=== PATIENT | female | born 1960 | race Caucasian/White ===

== ENCOUNTER → 2020-07-14 08:00 | Outpatient (BNV) | payer BC, OTHER, SELFPAY | PROVIDERS: Visit Provider Internal Medicine Medical Oncology | DX: Z85.3 Personal history of malignant neoplasm of breast (principal); Z92.21 Personal history of antineoplastic chemotherapy | CPT/HCPCS: 99213; 99214 ==

== ENCOUNTER 2021-04-06 15:12 | Outpatient (REF) | payer OTHER, SELFPAY | END 2021-04-06 15:13 | disposition home or self-care (01) | LOC: HO.LAB 15:12 | PROVIDERS: PCP Internal Medicine; Visit Provider Internal Medicine | DX: Z20.822 Contact with and (suspected) exposure to COVID-19 (principal) | CPT/HCPCS: C9803; U0003; U0005 ==

== ENCOUNTER 2021-07-07 08:33 | Outpatient (REF) | payer OTHER, SELFPAY ==
[2021-07-07 13:50] LABS: CT PCR NOT DETECTED (Not Detect.); NG PCR NOT DETECTED (Not Detect.)
[2021-07-08 08:47] LABS: BV Int Neg Control Negative (Negative); BV Int Pos Control Positive (Positive)
[2021-07-10 01:21] LABS: HPV mRNA E6/E7 rflx Not Detected (Not Detected)
== END 2021-07-07 08:34 | disposition home or self-care (01) ==
LOC: HO.LAB 08:33
PROVIDERS: PCP Internal Medicine; Visit Provider Advanced Practice Midwife
DX: Z01.419 Encounter for gynecological examination (general) (routine) without abnormal findings (principal); Z20.2 Contact with and (suspected) exposure to infections with a predominantly sexual mode of transmission; Z79.899 Other long term (current) drug therapy
CPT/HCPCS: 87480; 87491; 87510; 87591; 87624; 87660; 88142

== ENCOUNTER → 2021-11-04 13:44 | Outpatient (BNVA) | payer BC, SELFPAY | PROVIDERS: PCP Internal Medicine Medical Oncology; Referring Provider Internal Medicine Medical Oncology; Visit Provider Surgery | DX: Z13.89 Encounter for screening for other disorder (principal) ==

== ENCOUNTER 2022-01-21 12:36 | Outpatient (REF) | payer BC, SELFPAY | END 2022-01-21 12:37 | disposition home or self-care (01) | LOC: HO.XRAY 12:36 | PROVIDERS: PCP Internal Medicine; Visit Provider Internal Medicine | DX: Z13.89 Encounter for screening for other disorder (principal) ==

== ENCOUNTER 2022-01-24 16:45 | Outpatient (REF) | payer BC, SELFPAY ==
--- NOTE | ~2022-01-24 | XR_ITS ---
EXAMINATION: XR CERVICAL SPINE CLINICAL INFORMATION: Neck pain COMPARISON: None TECHNIQUE: 3 views of the cervical spine were obtained. FINDINGS: Bone alignment is normal. No fracture or dislocation is seen. There is degenerative spondylosis and degenerative disc disease from C3-C4 to C6-C7 with large bridging anterior vertebral body bony osteophytes. Prevertebral soft tissues are normal. XR/XR cervical spine 2V IMPRESSION: Multilevel degenerative changes.
--- NOTE | ~2022-01-24 | XR_ITS ---
EXAMINATION: XR CHEST CLINICAL INFORMATION: Neck pain COMPARISON: Previous chest x-ray April 2020 TECHNIQUE: 2 views of the chest were obtained. FINDINGS: No significant abnormality is noted involving the heart, lungs, mediastinum, or soft tissues. There are mild degenerative changes of the thoracic spine. XR/XR chest 2V IMPRESSION: No evidence for acute disease in the chest.
== END 2022-01-24 16:46 | disposition home or self-care (01) ==
LOC: HO.XRAY 16:45
PROVIDERS: PCP Internal Medicine; Visit Provider Internal Medicine
DX: M54.2 Cervicalgia (principal)
CPT/HCPCS: 71046; 72040

== ENCOUNTER 2022-08-10 14:25 | Outpatient (REF) | payer BC, SELFPAY ==
--- NOTE | ~2022-08-10 | MM_ITS ---
EXAMINATION: BONE DENSITOMETRY CLINICAL INDICATION: Osteopenia. COMPARISON: Previous BD dated 12/17/2019 and baseline BD dated 07/11/2008. TECHNIQUE: Using a [employer] DXA System (software version: 13.1) manufactured by [employer], dual-energy x-ray absorptiometry was performed of the lumbar spine and left hip. The images are of good technical quality. Summary results are attached. FINDINGS: AP SPINE L1-L4: Current: BMD 1.132 g/cm2, Z-score 1.1, T-score 0.4, normal, 0.4% decrease from previous, 5.7% decrease from baseline (<5% change is not significant). Prior: BMD 1.137 g/cm2. Baseline: BMD 1.201 g/cm2. LEFT FEMUR, NECK: Current: BMD 0.940 g/cm2, Z-score 0.7, T-score -0.7, normal. Prior: BMD 0.984 g/cm2. Baseline: BMD 0.984 g/cm2. LEFT FEMUR, TOTAL: Current: BMD 1.049 g/cm2, Z-score 1.4, T-score 0.3, normal, 0.7% decrease from previous, 5.4% decrease from baseline (<5% change is not significant). Prior: BMD 1.056 g/cm2. Baseline: BMD 1.109 g/cm2. IDENTIFIED RISK FACTORS: Bilateral oophorectomy, early menopause, secondary osteoporosis. HISTORY OF FRACTURE: None listed. MEDICATIONS: Multivitamin. MM/XR DEXA axial skeleton IMPRESSION: 1. DIAGNOSIS: Normal bone density based on the lowest T-score value of -0.7 in the femoral neck applying World Health Organization criteria. 2. 10-YEAR FRACTURE RISK PREDICTION, FRAX: According to the guidelines, FRAX calculation should only be performed on patients in the osteopenia bone density category. Therefore, FRAX was not performed on this patient. 3. Treatment Recommendations: NOF guidelines recommend consideration for treatment in postmenopausal women and men age 50 and older presenting with the following: -A hip or vertebral (clinical or morphometric) fracture. -T-score less than or equal to -2.5 at the femoral neck or spine after appropriate evaluation to exclude secondary causes. -Low bone mass at the hip or spine and a 10-year fracture probability by FRAX of greater than or equal to 3% for hip fracture or greater than or equal to 20% for major osteoporotic fracture based on the [place] adapted WHO algorithm. 4. Other Recommendations: All treatment decisions require clinical judgment and consideration of individual patient factors, including patient preferences, comorbidities, previous drug use, risk factors not captured in the FRAX model (e.g. frailty, falls, vitamin D deficiency, increased bone turnover, interval significant decline in bone density) and possible under or overestimation of fracture risk by FRAX. FUTURE SCAN RECOMMENDATION: People with diagnosed cases of osteoporosis or at high risk for fracture should have regular bone mineral density tests. For patients eligible for Medicare, routine testing is allowed once every 2 years. The testing frequency can be increased to one year for patients who have rapidly progressing disease, those who are receiving or discontinuing medical therapy to restore bone mass, or have additional risk factors.
== END 2022-08-10 14:26 | disposition home or self-care (01) ==
LOC: HO.MAMMO 14:25
PROVIDERS: PCP Internal Medicine; Visit Provider Internal Medicine Medical Oncology
DX: Z13.820 Encounter for screening for osteoporosis (principal); Z78.0 Asymptomatic menopausal state; M85.80 Other specified disorders of bone density and structure, unspecified site
CPT/HCPCS: 77080

== ENCOUNTER 2022-08-22 11:53 | Outpatient (REF) | payer BC, SELFPAY ==
[2022-08-22 13:14] LABS: Anion Gap 15 (12-20); Blood Urea Nitrogen 11 mg/dL (9-16); Calcium 9.6 mg/dL (8.4-10.2); Carbon Dioxide 27 mmol/L (22-29); Chloride 104 mmol/L (96-108); Cholesterol 207 mg/dL; Estimated Glomerular Filt Rate > 60; Glucose Random 100 mg/dL (60-115); HDL Cholesterol 65 mg/dL; LDL Cholesterol Calculated 115 mg/dl; Potassium 4.9 mmol/L (3.3-5.1); Sodium 141 mmol/L (135-145); Triglycerides 137 mg/dL
[2022-08-22 13:44] LABS: Folate 13.7 ng/mL (> or = 4.0); Free T4 (Free Thyroxine) 0.87 ng/dL (0.71-1.85); Thyroid Stimulating Hormone 1.53 uIU/mL (0.32-4.0); Vitamin B12 493 pg/mL (200-900); Vitamin D 25-OH Total 25.2 ng/mL (>30)
== END 2022-08-22 11:54 | disposition home or self-care (01) ==
LOC: HO.LAB 11:53
PROVIDERS: PCP Internal Medicine; Visit Provider Nurse Practitioner Family
DX: I10 Essential (primary) hypertension (principal); E78.00 Pure hypercholesterolemia, unspecified; E55.9 Vitamin D deficiency, unspecified
CPT/HCPCS: 36415; 80048; 80061; 82306; 82607; 82746; 84439; 84443

== ENCOUNTER → 2022-09-26 09:32 | Outpatient (BNVA) | payer BC, SELFPAY | PROVIDERS: PCP Internal Medicine; Visit Provider Advanced Practice Midwife | DX: Z13.89 Encounter for screening for other disorder (principal) ==

== ENCOUNTER 2022-09-30 08:11 | Day surgery (SDC) | payer BC, SELFPAY ==
[2022-09-27 10:03] VITALS: BMI 24.9
--- NOTE | 2022-09-29 09:43 | HO.ANESPROP2 ---
Documented by User: Susu Russell NP 09/29/22 09:44 HPI - Anesthesia Eval Consult details Narrative: 62yo F for Colonoscopy PMFSH Active Problems Active Problems: All Active Problems (Updated 09/27/22 @ 10:01 by Neha Barrett RN) Neck pain on left side (Acute) Annual physical exam (Acute) Generalized anxiety disorder (Acute) Scalp lesion (Acute) Low back pain (Acute) Low back strain (Acute) Low vitamin D level (Acute) Swelling of inguinal region (Acute) Cervical cancer screening (Acute) Well woman exam with routine gynecological exam (Acute) History of breast cancer (Acute) Insomnia (Acute) Hypertension (Acute) Past Medical History Medical History (Updated 09/27/22 @ 10:01 by Neha Barrett RN) Arthritis Breast cancer Cervical cancer screening Encounter for screening colonoscopy History of breast cancer Hypertension Infiltrating ductal carcinoma of left breast Insomnia Neuropathy Pancreatitis Renal calculi Vitamin D deficiency Well woman exam with routine gynecological exam Family History Family History Father CVD (cardiovascular disease) Myocardial infarction Mother Esophageal cancer Maternal Aunt Breast cancer Paternal Aunt Breast cancer Surgical History Surgical History History of bilateral oophorectomy History of section History of cholecystectomy History of colonoscopy History of tonsillectomy Social History Social History Household Members: Spouse Household Members Other:: , 3 kids Housing: House Are you a primary dog day care attendant to a significant other at home: No Do you presently have visiting nurse or other home services: No Alcohol intake: current Alcohol intake frequency: 0-2 drinks per day Patient Tobacco Use Status: Never used Tobacco e-Cigarette/Vaping Use: Never Used Second Hand Smoke Exposure: No Use of substances other than those prescribed or required for medical reasons: No Have you been hit, kicked, punched, or otherwise hurt by someone within the past year? If so, by whom?: No Are you DNR?: No Advance Directives: No Advance Directives Information Provided: Yes Advance Directives on File: No Recently lost weight without trying: No Eating poorly because of decreased appetite: No Nutrition Risks: No Nutritional Risk Patient : No : No Poor oral hygiene: Yes (1 crown with post loose) service: No Current occupational status: employed Cognitive needs: No Hearing needs: No Vision needs: Yes Meds Allergies Allergy/AdvReac Type Severity Reaction Status Date / Time diphenhydramine Allergy Unknown Jittery Verified 09/26/22 09:40 [[facility] Home Medications Medication Instructions Recorded Confirmed Last Taken Type melatonin 5 mg capsule 5 mg PO BEDTIME 08/24/20 09/27/22 Unknown History multivitamin 1 tab PO DAILY 08/24/20 09/27/22 Unknown History Exam Exam Date and Time: September 29, 2022 0943 Height,Weight and Vital Signs: Height 5 ft 1 in Weight 59.874 kg Pertinent Lab Results Pertinent Lab Results: Laboratory Tests 04/14/22 08/22/22 08:09 12:01 WBC 8.3 Hgb 13.6 Hct 39.4 Plt Count 343 D Sodium 141 Potassium 4.9 Chloride 104 Carbon Dioxide 27 BUN 11 Creatinine 0.73 Assessment and Plan Assessment Anesthesia Assessment: Chart Reviewed Documented by User: Cayla iVllalobos MD 09/30/22 09:12 [facility] Past Medical History Medical History (Updated 09/27/22 @ 10:01 by Neha Barrett RN) Arthritis Breast cancer Cervical cancer screening Encounter for screening colonoscopy History of breast cancer Hypertension Infiltrating ductal carcinoma of left breast Insomnia Neuropathy Pancreatitis Renal calculi Vitamin D deficiency Well woman exam with routine gynecological exam Family History Family History Father CVD (cardiovascular disease) Myocardial infarction Mother Esophageal cancer Maternal Aunt Breast cancer Paternal Aunt Breast cancer Family history of problems with anesthesia: No Surgical History Surgical History History of bilateral oophorectomy History of section History of cholecystectomy History of colonoscopy History of tonsillectomy History of Problems with Anesthesia: No Social History Social History Household Members: Spouse Household Members Other:: , 3 kids Housing: House Are you a primary dog day care attendant to a significant other at home: No Do you presently have visiting nurse or other home services: No Alcohol intake: current Alcohol intake frequency: 0-2 drinks per day Patient Tobacco Use Status: Never used Tobacco e-Cigarette/Vaping Use: Never Used Second Hand Smoke Exposure: No Use of substances other than those prescribed or required for medical reasons: No Have you been hit, kicked, punched, or otherwise hurt by someone within the past year? If so, by whom?: No Are you DNR?: No Advance Directives: No Advance Directives Information Provided: Yes Advance Directives on File: No Recently lost weight without trying: No Eating poorly because of decreased appetite: No Nutrition Risks: No Nutritional Risk Patient : No : No Poor oral hygiene: Yes (1 crown with post loose) service: No Current occupational status: employed Cognitive needs: No Hearing needs: No Vision needs: Yes Meds Allergies Allergy/AdvReac Type Severity Reaction Status Date / Time diphenhydramine Allergy Unknown Jittery Verified 09/26/22 09:40 [From Benadryl] Home Medications Medication Instructions Recorded Confirmed Last Taken Type melatonin 5 mg capsule 5 mg PO BEDTIME 08/24/20 09/27/22 Unknown History multivitamin 1 tab PO DAILY 08/24/20 09/27/22 Unknown History Exam Airway Mallampati Class: II (top lose cap) TM Dist: >3cm Neck ROM: Full Heart: rrr Lungs: cta Assessment and Plan Assessment Anesthesia Assessment: Anesthesia Plan Discussed Final Anesthetic Review Family History of Problems with Anesthesia: No History of Problems with Anesthesia: No NPO: Yes ASA Class: II Final Preanesthetic Review: No Changes in Pt Med Stat, Meds/Allgs Chart Reviewed and Consent Obtained/Reviewed Patient Risk: Intermediate Procedure Risk: Intermediate Anesthetic Plan Anesthetic Plan: MAC: Disposition: Standard PACU
[2022-09-30 08:50] VITALS: BP 147/85; PULSE 79; RESP 18; TEMP 36.6; O2SAT 97; BMI 24.9
--- NOTE | 2022-09-30 09:07 | MHC.SHP ---
Pre-Procedural Eval Section A Date of Service: 09/30/22 The patient is an INPATIENT: No The History & Physical has been completed within 30 days and I have reviewed it.: No Section B Chief Complaint: screening Details of Present Illness: Colon cancer screening Relevant Family History (Specify if Yes): Yes Relevant Social History: None Present Medications: see Short Stay Collaborative assessment Medical History: Significant History (Hypertension Infiltrating ductal carcinoma of left breast Insomnia Renal calculi) History of Previous Operations: Relevant previous surgery/procedure and date(s) (History of bilateral oophorectomy History of section History of cholecystectomy History of colonoscopy History of tonsillectomy) Allergies: Allergies Allergy/AdvReac Type Severity Reaction Status Date / Time diphenhydramine Allergy Unknown Harjitttnicole Verified 09/26/22 09:40 [From Benadryl] Review of Systems Sugical H&P ROS: Negative: Constitution, Cardiovascular, Respiratory and Gastrointestinal Exam Surgical H&P Exam: Normal: Heart, Normal: Lungs, Normal: Extremities and Normal: Abdomen Plan Diagnosis/Plan: Unchanged I have reviewed the history and physical and performed a pertinent physical examination on my patient. No changes have occurred unless specified. Time Spent With Patient Time: Total time managing care of this patient today ____ minutes.
[2022-09-30] MEDS: Lactated Ringers 1,000 ML 100 ML IVCONT (09:11)
--- NOTE | 2022-09-30 09:16 | W.PM.OPN ---
Operative Note Operative Note Date of Service: 09/30/22 Narrative: COLONOSCOPY TILL CECUM WITH SNARE POLYPECTOMY Pre-op diagnosis: Colon cancer screening Post-op diagnosis:? Colon polyps, diverticulosis Endoscopist:? Rosa Jett MD Anesthesia:?MAC Consent: Indications for the procedure and potential complications of bleeding, perforation, reaction to medications and missed diagnosis were discussed with the patient and informed consent was obtained. Instrument: Olympus PCF H 190 L variable stiffness pediatric colonoscope Monitoring: Vital signs and clinical assessment, intermittent blood pressure monitoring, continuous EKG monitoring, Pulse oximetry and Carbon Dioxide monitoring were done throughout the procedure. Please see anesthesia flowsheet. Colon withdrawl time was 22 minutes. Procedure: The patient was placed in the left lateral decubitis position and pre-procedure medications were administered. After a digital rectal examination of the ano-rectum, the video colonoscope was inserted into the rectum and advanced through the colon to the cecum. The colonoscope was slowly withdrawn in a retrograde panoramic fashion and the colon mucosa was carefully examined including a retroflexed view of the rectum. Findings and interventions are described below. Procedure Difficulty: Without difficulty Findings: Terminal Ileum: Not evaluated Cecum: A 10 mm flat polyp on a fold adjacent to the appendicular orifice. Polyp was removed with a hot stiff snare. Ascending Colon: A 7-8 mm sessile polyp in the mid AC - removed with a cold snare. Transverse Colon: Normal Descending Colon: Normal Sigmoid Colon: Moderate diverticulosis Rectum: Normal Ano-rectum: Normal Colon preparation: Good after some irrigation Impression and Post Procedure Diagnosis: Colonoscopy Findings: One small and one medium sized polyps removed Moderate diverticulosis seen in the sigmoid colon Plan: Await pathology results Patient has an appointment on 10/11/22 in the GI Clinic with RADHA Augustin. Repeat Colonoscopy interval based on path results - in 3-5 years if polyps are adenomatous and 10 years if polyps are hyperplastic. Above findings were reviewed with the patient and colon polyps and diverticulosis handouts were given in the discharge area
[2022-09-30 09:57] VITALS: BP 97/52; PULSE 83; RESP 16; TEMP 525.8; TEMP 978.4; O2SAT 97
[2022-09-30 10:12] VITALS: BP 106/59; PULSE 74; RESP 16; O2SAT 98
== END 2022-09-30 10:45 | disposition home or self-care (01) ==
PROVIDERS: PCP Internal Medicine; Visit Provider Internal Medicine Gastroenterology
PROC: 0DJD8ZZ Inspection of Lower Intestinal Tract, Via Natural or Artificial Opening Endoscopic (ICD-10-PCS; CPT 45378; principal; 2022-09-30 09:20)
DX: Z12.11 Encounter for screening for malignant neoplasm of colon (principal); D12.0 Benign neoplasm of cecum; D12.2 Benign neoplasm of ascending colon; K57.30 Diverticulosis of large intestine without perforation or abscess without bleeding; I10 Essential (primary) hypertension; N20.0 Calculus of kidney; G47.00 Insomnia, unspecified; Z85.3 Personal history of malignant neoplasm of breast; Z79.899 Other long term (current) drug therapy; Z88.8 Allergy status to other drugs, medicaments and biological substances
CPT/HCPCS: 45385; 88305

== ENCOUNTER → 2022-10-11 07:33 | Outpatient (BNVA) | payer BC, SELFPAY | PROVIDERS: PCP Internal Medicine; Visit Provider Physician Assistant ==

== ENCOUNTER 2022-12-15 09:25 | Outpatient (AMB) | payer BC, SELFPAY ==
--- NOTE | 2022-12-15 09:32 | A.OFFVIS_ITS ---
Intake Vital Signs 12/15/22 09:35 Height 5 ft 1 in Weight 136 lb BMI 25.7 BP 157/88 H Blood Pressure Location Lt brachial Position Sitting Pulse 75 Intake Visit Reasons: breast exam, 1 year follow up Intake Note: Patient is seen in office for yearly breast exam. 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 She is a former patient of Dr. Torres diagnosed with left breast treating ductal carcinoma in October 2007. She underwent a left breast lumpectomy, axillary sentinel node biopsy in November of 2007. Pathology revealed a left breast infiltrating ductal carcinoma with 2 foci measuring 2.1 cm and 1.3 cm, grade 2, ER/MT positive, HER2 Marilou negative, 2 of 2 sentinel nodes positive metastases. Axillary node dissection of 14 lymph nodes were removed, 3 were positive for metastatic disease (T2 N1a M0, stage II). She underwent AC followed by T, followed by XRT, tamoxifen, and exemestane. She has been very active, traveling to [place] for vacation. She she continues to exercise on a regular basis. She notes a pinching in the right groin with a red olegario she would like me to check. Her last mammogram performed at [facility] on 02/08/2022 revealed no mammographic evidence of malignancy (BI-RADS 2). She is due for an annual mammogram in February 2023 She denies any new breast symptoms and generally feels well. [facility] Medical History Arthritis Breast cancer Cervical cancer screening Encounter for screening colonoscopy History of breast cancer Hypertension Infiltrating ductal carcinoma of left breast Insomnia Neuropathy Pancreatitis Renal calculi Vitamin D deficiency Well woman exam with routine gynecological exam Surgical History History of bilateral oophorectomy History of section History of cholecystectomy History of colonoscopy History of tonsillectomy Family History Father CVD (cardiovascular disease) Myocardial infarction Mother Esophageal cancer Maternal Aunt Breast cancer Paternal Aunt Breast cancer Social History Household Members: Spouse Household Members Other:: , 3 kids Housing: House Are you a primary health care law specialist to a significant other at home: No Do you presently have visiting nurse or other home services: No Alcohol intake: current Alcohol intake frequency: 0-2 drinks per day Patient Tobacco Use Status: Never used Tobacco e-Cigarette/Vaping Use: Never Used Second Hand Smoke Exposure: No service: No Current occupational status: employed Cognitive needs: No Hearing needs: No Vision needs: Yes Female Reproductive History Menstrual Age of Menarche: 13 Review of Systems Const Denies chills, Denies fever(s), Denies headache(s) and Denies poor appetite ENT Denies dizziness and Denies headache(s) Card Denies chest pain, Denies rapid heart rate, Denies palpitations and Denies slow heart rate Resp Denies chest congestion, Denies cough, Denies pain on inspiration and Denies wheezing GI Denies abdominal pain, Denies bloating, Denies change in stool character, Denies constipation, Denies diarrhea, Denies nausea, Denies vomiting and Denies hematemesis Denies nipple discharge Musc Denies back pain, Denies arthralgias, Denies joint swelling and Denies numbness Skin/Breast Reports breast skin changes, Denies breast pain, Denies breast mass, Denies change in breast shape, Denies change in pigmentation, Denies nipple discharge, Denies erythema and Denies rash Neuro Denies dizziness, Denies headache(s) and Denies numbness Psych Reports anxiety and Denies depression Endo Denies palpitations Chepe/Lymph Denies easy bleeding, Denies easy bruising and Denies lymphadenopathy Aller/Immun Denies wheezing Physical Exam Const General: cooperative, comfortable and well developed Nutritional Appearance: well nourished Orientation/consciousness: patient oriented x3 Eyes Sclerae: sclerae normal EOM: EOMs intact bilaterally Neck Neck: Yes normal visual inspection Chest Other: Left breast: No skin change, no nipple retraction, no nipple discharge, no palpable mass, no enlarged lymph nodes, incision in the 2 to 3 o'clock position with some scar retraction in volume loss noted. Axillary incision is clean, and intact. No new palpable mass appreciated. Right breast: No skin change, no nipple retraction, no nipple discharge, no palpable mass, no enlarged lymph nodes Resp Effort & Inspection: normal respiratory effort, no cough, no respiratory distress and no stridor Cardio Jugular venous distension: no JVD GI Inspection: Yes normal to inspection Palpation (GI): Soft to palpation, nontender, no guarding and not rigid Skin Other: Right groin with a small area of inflammation suggestive of an epidermal incl usion cyst or infected hair follicle measuring approximately 4 mm in diameter. No palpable abscess is appreciated. General skin exam: dry skin Rashes: no rashes Full body images: 1. Site of the right leg Neuro General: patient oriented x3 and no focal motor deficits Extrem General: Yes full ROM and Yes no clubbing, cyanosis or edema Psych Appearance: grossly normal Assessment & Plan Assessment & Plan (1) Epidermal inclusion cyst: Code(s): L72.0 - Epidermal cyst (2) History of breast cancer: Code(s): Z85.3 - Personal history of malignant neoplasm of breast (3) Infiltrating ductal carcinoma of left breast: Code(s): C50.912 - Malignant neoplasm of unspecified site of left female breast Plan: 62-year-old female patient with a previous history of infiltrating ductal carcinoma of the left breast status post lumpectomy and axillary dissection in 2007 returning today for a routine breast cancer follow-up examination. Examination does reveal residual scar tissue and volume loss in the left breast at the upper outer quadrant. No suspicious findings are noted in either breast on today's examination. Her last mammogram of 02/08/2022 revealed no suspicious findings in either breast (BI-RADS 2). She is due for an annual mammogram in February 2023 ([facility]). Skin lesion noted in the right upper inner thigh appears to be a epidermal inclusion cyst or infected hair follicle which is now resolved. We discussed the excision verses observation. She is comfortable with observation but will call should she wish in excision. She will return in 1 year for annual examination but should call sooner for any new concerns. Coding Level of Care Code Est Pt Level 3 (90489) Diagnoses Epidermal inclusion cyst L72.0 History of breast cancer Z85.3 Infiltrating ductal carcinoma of left breast C50.912
[2022-12-15 09:35] VITALS: BP 157/88; PULSE 75; BMI 25.7
== END 2022-12-15 09:50 | disposition home or self-care (01) ==
PROVIDERS: PCP Internal Medicine; Visit Provider Surgery
DX: L72.0 Epidermal cyst (principal); Z85.3 Personal history of malignant neoplasm of breast
CPT/HCPCS: 99213

== ENCOUNTER → 2022-12-15 09:25 | Outpatient (BNVA) | payer BC, SELFPAY | PROVIDERS: PCP Internal Medicine; Visit Provider Surgery ==

== ENCOUNTER 2023-04-17 08:43 | Outpatient (REF) | payer BC, SELFPAY ==
--- NOTE | ~2023-04-17 | XR_ITS ---
EXAMINATION: XR BILATERAL HIPS WITH AP PELVIS CLINICAL INFORMATION: Bilateral hip pain; history of breast cancer. COMPARISON: None available. TECHNIQUE: AP view of the pelvis and AP and frog-leg lateral views of each hip were obtained. FINDINGS: Bony alignment and mineralization are normal. The acetabular joint spaces are symmetric and well-maintained. There is trace peripheral osteophyte formation at the lateral margin of the left acetabular roof. The femoral heads are smooth. No fracture or dislocation is seen. There are pelvic phleboliths. No foreign body is seen. XR/XR hip BI w [id number] IMPRESSION: 1. No unusual degenerative change is seen of the right hip, and there is trace osteoarthritic change of the left hip. 2. No fracture or dislocation is seen.
== END 2023-04-17 08:44 | disposition home or self-care (01) ==
LOC: HO.XRAY 08:43
PROVIDERS: PCP Internal Medicine; Visit Provider Internal Medicine Medical Oncology
DX: M25.551 Pain in right hip (principal); M25.552 Pain in left hip
CPT/HCPCS: 73521

== ENCOUNTER 2023-12-25 15:20 | Outpatient (AMB) | payer BC, SELFPAY ==
--- NOTE | 2023-12-25 15:20 | A.OFFPC_ITS ---
Intake Visit Reasons: Follow Up Per Dr Sousa, + for COVID Community Engagement Specialist Required: No Allergies diphenhydramine [From Benadryl] Allergy (Unknown, Verified 11/02/23 08:38) Jittery Tobacco use date assessed: 12/25/23 Dental Screening Dental Screen Date: 12/25/23 Did you have a dental visit in the last 12 months?: Yes Did you have a dental problem in the last 6 months where you did not have access to dental care?: No Was dental information given to patient?: Patient has dentist HPI Follow Up Per Dr Sousa, + for COVID HPI Details 63-year-old female with a history of lupis ast cancer hypertension GERD last seen in January 2022 calling in for an acute problem through Telehealth. was in [place]. 1 day pos test. was positive on monday - congested , RAMOS, tired, no fevers. , increase a lot of fluids. Patient has been noticed to have an elevated blood pressure and has been taking blood pressure medication with no control. Also states recently was in the emergency room for dizziness question of syncopal episode no fevers no coughs ER visit and had a workup that was negative. There was a question on blood pressure problem. Meanwhile as for the breast cancer up-to-date with mammograms [facility] Medical History Arthritis Breast cancer Cervical cancer screening Encounter for screening colonoscopy History of breast cancer Hypertension Infiltrating ductal carcinoma of left breast Insomnia Neuropathy Pancreatitis Renal calculi Vitamin D deficiency Well woman exam with routine gynecological exam Surgical History History of bilateral oophorectomy History of section History of cholecystectomy History of colonoscopy History of tonsillectomy Family History Father CVD (cardiovascular disease) Myocardial infarction Mother Esophageal cancer Maternal Aunt Breast cancer Paternal Aunt Breast cancer Social History Household Members: Spouse Household Members Other:: , 3 kids Housing: House Are you a primary nurse behavioral health care to a significant other at home: No Do you presently have visiting nurse or other home services: No Alcohol intake: current Alcohol intake frequency: 0-2 drinks per day Patient Tobacco Use Status: Never used Tobacco e-Cigarette/Vaping Use: Never Used Second Hand Smoke Exposure: No service: No Current occupational status: employed Cognitive needs: No Hearing needs: No Vision needs: Yes Female Reproductive History Menstrual Age of Menarche: 13 Questionnaire Thrive Questionnaire Date Thrive assessed: 08/24/22 AUDIT C Alcohol Use Questionnaire (AUDIT-C) 1. How often do you have a drink containing alcohol?: Monthly or less 2. How many drinks containing alcohol do you have on a typical day when you are drinking?: 1 or 2 3. How often do you have six or more drinks on one occasion?: Never Total Score: 1 Score Reviewed/Action Taken: No JARRELL-7 AMB Questionnaire JARRELL-7 Date JARRELL - 7 assessed: 01/13/22 Source: Developed by Drs. Heriberto Merino, Aviva Guillen, Jag Jackson and colleagues, with an educational eugene from [employer]. Physical exam (Primary Care) Tobacco/Smoking Status: Tobacco use Status Tobacco use date assessed 12/25/23 12/25/23 15:22 Patient Tobacco Use Status Never used Tobacco 12/25/23 15:22 e-Cigarette/Vaping Use Never Used 12/25/23 15:22 Thrive Assessment: Date of Thrive Assessment Date Thrive assessed 08/24/22 12/25/23 15:22 Telehealth Telehealth Telehealth Platform: Telephone Location of provider rendering services: practice address Location of patient: address on file Patient Identification confirmed using: Name, : Yes Telehealth method: video (iphone) Patient verbally consented to treatment: Yes Patient verbally consented to billing insurance company: Yes Patient informed of any privacy concerns related to visit: Yes Minutes spent on Phone/Video with Pt.: 25 Assessment and Plan Assessment & Plan (1) COVID-19 virus infection: Comment: 05/27/2023, 12/2023 Code(s): U07.1 - COVID-19 Plan: symptoms mild decline paxlovid for now. Keep well hydrated. (2) Hypertension: Code(s): I10 - Essential (primary) hypertension Qualifiers: Hypertension type: essential hypertension Qualified Code(s): I10 - Essential (primary) hypertension Plan: Continue with blood pressure medication. Decrease salt intake and exercise with the blood pressure still high increased lisinopril to 10 mg once a day advised to get blood work a month from now (3) History of breast cancer: Code(s): Z85.3 - Personal history of malignant neoplasm of breast Plan: Patient continues to follow-up with Hematology-Oncology and up-to-date with amisai Orders: Orders Free T4 (Free Thyroxine) 4 Weeks I10 - Essential (primary) hypertension Lipid Panel 4 Weeks E78.00 - Pure hypercholesterolemia, unspecified, I10 - Essential (primary) hypertension Vitamin B12 and Folate 4 Weeks I10 - Essential (primary) hypertension Vitamin D 25-OH Total 4 Weeks I10 - Essential (primary) hypertension Magnesium 4 Weeks I10 - Essential (primary) hypertension Complete Blood Count Auto Diff 4 Weeks I10 - Essential (primary) hypertension Comprehensive Met. Panel 4 Weeks I10 - Essential (primary) hypertension Thyroid Stimulating Hormone 4 Weeks I10 - Essential (primary) hypertension Medications: Changed From zolpidem (Ambien) 5 mg PO BEDTIME PRN 20 tabs 0RF sleep F51.01 - Primary insomnia To zolpidem 10 mg PO BEDTIME PRN 30 tabs 1RF sleep F51.01 - Primary insomnia From lisinopril 2.5 mg PO DAILY 90 tabs 3RF I10 - Essential (primary) hypertension To lisinopril 10 mg PO DAILY 30 days 30 tabs 3RF I10 - Essential (primary) hypertension Discontinued lorazepam (Ativan) Discontinued Reason: Patient Completed Course 0.5 mg PO BEDTIME PRN 6 tabs 0RF Anxiety Coding Level of Care Code Tele Est Pt Level 4 (02761) Diagnoses COVID-19 virus infection U07.1 Essential hypertension I10 Hypertension type: essential hypertension History of breast cancer Z85.3
== END 2023-12-25 18:35 | disposition home or self-care (01) ==
LOC: HO.HMGH 15:20
PROVIDERS: PCP Internal Medicine; Visit Provider Internal Medicine
DX: U07.1 COVID-19 (principal); I10 Essential (primary) hypertension; Z85.3 Personal history of malignant neoplasm of breast
CPT/HCPCS: 99214

== ENCOUNTER 2024-01-02 09:36 | Outpatient (AMB) | payer BC, SELFPAY ==
[2024-01-02 09:42] VITALS: BP 136/76; BMI 25.5
--- NOTE | 2024-01-02 09:42 | MHC.OFFVIS ---
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: No Information Interpreted: clinical only Stem Dryer Maintainer: Stem Dryer Maintainer Present Allergies diphenhydramine [From Benadryl] Allergy (Unknown, Verified 01/02/24 09:58) Jittery Medication List - Last Reconciled 01/02/24 by Tabatha Dominique CNM lisinopril 10 mg PO DAILY 30 days lorazepam 0.5 mg PO BEDTIME PRN melatonin 5 mg PO BEDTIME multivitamin 1 tab PO DAILY zolpidem 10 mg PO BEDTIME PRN Post menopausal: Yes PFSH Medical History Neuropathy Pancreatitis Vitamin D deficiency Arthritis Encounter for screening colonoscopy Infiltrating ductal carcinoma of left breast Cervical cancer screening Well woman exam with routine gynecological exam Breast cancer Renal calculi Insomnia Hypertension History of breast cancer Surgical History History of bilateral oophorectomy History of section History of colonoscopy History of tonsillectomy History of cholecystectomy Family History Father CVD (cardiovascular disease) Myocardial infarction Mother Esophageal cancer Maternal Aunt Breast cancer Paternal Aunt Breast cancer Social History Household Members: Spouse Household Members Other:: , 3 kids Housing: House Are you a primary career services coordinator to a significant other at home: No Do you presently have visiting nurse or other home services: No Alcohol intake: current Alcohol intake frequency: 0-2 drinks per day Patient Tobacco Use Status: Never used Tobacco e-Cigarette/Vaping Use: Never Used Second Hand Smoke Exposure: No service: No Current occupational status: employed Cognitive needs: No Hearing needs: No Vision needs: Yes Female Reproductive History Menstrual Age of Menarche: 13 Duration of menses: 3-5 days control method: none Total pregnancies: 3 Full term: 3 Date of last pap smear: 07/07/21 (negative) Date of Mammogram: 02/08/22 (neg) Physical Exam Vital Signs: Last Vital Signs BP 136/76 01/02/24 09:42 BMI result Body Mass Index 25.5 Const Other: Patient is well tanned status post trip to [facility]. General: healthy appearing, comfortable, no acute distress, well developed and alert Nutritional Appearance: average body habitus Orientation/consciousness: patient oriented x3 Limitations: no limitations HEENT Head: Yes normocephalic Neck Neck: Yes normal visual inspection Thyroid: Thyroid normal Chest Other: Left breast has scar tissue from surgery which could mask masses. Chest palpation & inspection: normal inspection of the chest Breast/axilla inspection: normal inspection of the breasts and normal inspection of the axillae Breast/axilla palpation: normal palpation of the breasts and normal palpation of the axillae Resp Effort & Inspection: normal respiratory effort GI Inspection: Yes normal to inspection, No Abdominal wall edema and No distended Palpation (GI): Soft to palpation and nontender Other: Normal external and internal exam atrophic changes noted thin mucosa membranes. Cervix appears within normal limits mobile nontender not enlarged good tone with Kegel General: Yes bladder normal to palpation External Female Exam: normal external appearance and normal appearance of the urethra Speculum Exam - Vagina: normal appearance of the vagina, normal palpation and normal vaginal discharge Speculum Exam - Cervix: normal appearance of the cervix, normal palpation and nontender Bimanual exam- vagina & uterus: normal bimanual exam, normal palpation, uterine size normal, bladder normal to palpation, consistency normal, normal palpation, uterine mobility normal, uterine shape normal, No Cervical tenderness present, non-tender and no cervical motion tenderness Bimanual Exam- Adnexa, other: normal adnexae, no masses, normal and No adnexal tenderness Neuro General: patient oriented x3 Assessment & Plan Assessment & Plan (1) Cervical cancer screening: Comment: 07/07/2021 Pap equals negative, negative HPV., next pap due 2026 Code(s): Z12.4 - Encounter for screening for malignant neoplasm of cervix Category: Medical (2) Well woman exam with routine gynecological exam: Code(s): Z01.419 - Encounter for gynecological examination (general) (routine) without abnormal findings Category: Medical (3) History of breast cancer: Code(s): Z85.3 - Personal history of malignant neoplasm of breast Category: Medical (4) Diverticulosis of colon: Code(s): K57.30 - Diverticulosis of large intestine without perforation or abscess without bleeding Category: Medical (5) Post-menopausal: Code(s): Z78.0 - Asymptomatic menopausal state Category: Medical Plan -----Discussed in this visit the following: healthy balanced diet, regular and consistent exercise, getting recommended health screens, doing the best she can for her particular health concerns, kegel exercises, pap smear screening and followup recommendations, mammography screening and SBE, normal changes in cycles in her life stage--- . Reviewed her overall health reviewed her healthy diet reviewed her management of diet to prevent any problems with IBS or diverticulosis proceeding to diverticulitis. Discussed remedies for constipation. She has a very healthy diet she exercises a lot 1 of the days in [place] they walked 12 miles in the 1 day. She follows up with her primary care doctor and GI specialist and Dr. Maier for her breast. She is up-to-date on her screenings for any recurrence of the breast cancer. She started taking magnesium recently discussed the possible benefits for GI and constipation. As well as any leg cramps She uses lubricants when she needs to for intimacy. Discussed that her Pap smear isn't due until 2026 if she has no special ob/gyn doctor concerns even though we say come back every year if she is seeing her primary care provider and her visits with Dr. Maier for follow-up of her breast cancer and any GI concerns as well those may take precedence since she has no ob/gyn doctor concerns. Coding Level of Care Code Est Pt Prev Care 40-64y(23614) Diagnoses Cervical cancer screening Z12.4 Well woman exam with routine gynecological exam Z01.419 History of breast cancer Z85.3 Diverticulosis of colon K57.30 Post-menopausal Z78.0
== END 2024-01-02 10:42 | disposition home or self-care (01) ==
LOC: HO.HWSM 09:36
PROVIDERS: PCP Internal Medicine; Visit Provider Advanced Practice Midwife
DX: Z12.4 Encounter for screening for malignant neoplasm of cervix (principal); Z01.419 Encounter for gynecological examination (general) (routine) without abnormal findings; Z85.3 Personal history of malignant neoplasm of breast; K57.30 Diverticulosis of large intestine without perforation or abscess without bleeding; Z78.0 Asymptomatic menopausal state
CPT/HCPCS: 99396

== ENCOUNTER → 2024-01-02 09:36 | Outpatient (BNVA) | payer BC, SELFPAY | PROVIDERS: PCP Internal Medicine; Visit Provider Advanced Practice Midwife ==

== ENCOUNTER 2024-02-16 07:28 | Outpatient (REF) | payer BC, SELFPAY ==
[2024-02-16 07:45] LABS: MANUAL DIFF FLAG NO
[2024-02-16 07:59] LABS: Basophils Absolute Auto 0.1 X10*3/uL (0.0-0.2); Basophils Percent Auto 0.9 % (0-2); Eosinophils Absolute Auto 0.4 X10*3/uL (0.0-0.4); Eosinophils Percent Auto 4.8 % (0-4); Hematocrit 37.9 % (37.0-47.0); Hemoglobin 13.4 g/dl (12.0-16.0); Imm Gran Abs Auto 0.03 X10*3/uL (0.00-0.03); Imm Gran Pct Auto 0.3 % (0.0-0.4); Lymphocytes Absolute Auto 2.7 X10*3/uL (1.2-4.9); Lymphocytes Percent Auto 30.8 % (20-40); Mean Corpuscular HGB Conc 35.4 g/dl (31.0-35.0); Mean Corpuscular Hemoglobin 31.4 pg (27.0-33.0); Mean Corpuscular Volume 88.8 fL (80.0-98.0); Mean Platelet Volume 9.4 fL (9.4-12.3); Monocytes Absolute Auto 0.9 X10*3/uL (0.1-1.2); Monocytes Percent Auto 10.2 % (2-11); Neutrophils Absolute Auto 4.6 x10*3/uL (2.0-8.3); Platelet Count 337 X10*3/uL (160-400); Red Blood Count 4.27 X10*6/uL (4.20-5.50); Red Cell Distribution Width 11.8 % (11.0-16.0); White Blood Count 8.6 X10*3/uL (4.8-10.8)
[2024-02-16 08:23] LABS: Alanine Aminotransferase 36 U/L (0-31); Albumin Level 4.7 g/dL (3.5-5.0); Alkaline Phosphatase 65 U/L (39-117); Anion Gap 13 (12-20); Aspartate Amino Transferase 24 U/L (5-31); Bilirubin Total 0.8 mg/dL (0.0-1.0); Blood Urea Nitrogen 13 mg/dL (9-16); Calcium 9.9 mg/dL (8.4-10.2); Carbon Dioxide 26 mmol/L (22-29); Chloride 105 mmol/L (96-108); Cholesterol 232 mg/dL (<200); Estimated Glomerular Filt Rate > 60; Glucose Random 100 mg/dL (60-115); HDL Cholesterol 63 mg/dL (>40); LDL Cholesterol Calculated 134 mg/dL (<100); Potassium 3.9 mmol/L (3.3-5.1); Sodium 140 mmol/L (135-145); Total Protein 7.3 g/dL (6.5-8.0); Triglycerides 179 mg/dL (<150)
[2024-02-16 08:44] LABS: Free T4 (Free Thyroxine) 0.96 ng/dL (0.71-1.85); Thyroid Stimulating Hormone 1.73 uIU/mL (0.32-4.0)
[2024-02-16 08:52] LABS: Folate 8.2 ng/mL (> or = 4.0); Vitamin B12 459 pg/mL (200-900)
== END 2024-02-16 07:29 | disposition home or self-care (01) ==
LOC: HO.LAB 07:28
PROVIDERS: PCP Internal Medicine; Visit Provider Internal Medicine
DX: I10 Essential (primary) hypertension (principal); E78.00 Pure hypercholesterolemia, unspecified
CPT/HCPCS: 36415; 80053; 80061; 82306; 82607; 82746; 83735; 84439; 84443; 85025

== ENCOUNTER 2024-02-21 10:16 | Outpatient (AMB) | payer BC, SELFPAY ==
[2024-02-21 10:24] VITALS: BP 136/76; PULSE 68; O2SAT 97; BMI 24.7
--- NOTE | 2024-02-21 10:24 | A.OFFPC_ITS ---
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 Last seen through Telehealth in 12/23/2023. Due for bone density, mammogram,. Colonoscopy is up-to-date. at home [phone] [facility] Medical History (Updated 02/21/24 @ 10:32 by Moises Sousa MD) COVID-19 virus infection Cervical cancer screening Well woman exam with routine gynecological exam Epidermal inclusion cyst Sessile colonic polyp Neck pain on left side Swelling of inguinal region Scalp lesion Low back strain Low back pain Neuropathy Pancreatitis Vitamin D deficiency Arthritis Encounter for screening colonoscopy Infiltrating ductal carcinoma of left breast Breast cancer Renal calculi Insomnia Hypertension History of breast cancer Surgical History History of bilateral oophorectomy History of section History of colonoscopy History of tonsillectomy History of cholecystectomy Family History Father CVD (cardiovascular disease) Myocardial infarction Mother Esophageal cancer Maternal Aunt Breast cancer Paternal Aunt Breast cancer Social History Household Members: Spouse Household Members Other:: , 3 kids Housing: House Are you a primary patient care technician to a significant other at home: No Do you presently have visiting nurse or other home services: No Alcohol intake: current Alcohol intake frequency: 0-2 drinks per day Patient Tobacco Use Status: Never used Tobacco Tobacco use type: Cigarette e-Cigarette/Vaping Use: Never Used Second Hand Smoke Exposure: No service: No Current occupational status: employed Cognitive needs: No Hearing needs: No Vision needs: Yes Female Reproductive History Menstrual Age of Menarche: 13 Questionnaire PHQ-9 Over the last 2 weeks, how often have you been bothered by any of the following problems? 1. Little interest or pleasure in doing things: not at all 2. Feeling down, depressed, or hopeless: not at all 3. Trouble falling or staying asleep, or sleeping too much: not at all 4. Feeling tired or having little energy: not at all 5. Poor appetite or overeating: not at all 6. Feeling bad about yourself - or that you are a failure or have let yourself or your family down: not at all 7. Trouble concentrating on things, such as reading the newspaper or watching television: not at all 8. Moving or speaking so slowly that other people could have noticed. Or the opposite - being so fidgety or restless that you have been moving around a lot more than usual: not at all 9. Thoughts that you would be better off or of hurting yourself in some way: not at all Total score: 0 Depression Screening Interpretation: Negative Depression Screening Done: Yes 07457 - PHQ-9 Billing: Yes Source: Developed by Drs. Heriberto Merino, Aviva Guillen, Jag Jackson and colleagues, with an educational eugene from [employer]. Thrive Questionnaire Date Thrive assessed: 02/21/24 I am a: Patient What is your living situation today?: I have a steady place to live Within the past 12 months, did the food you bought not last and you didn't have the money to get more?: Never true Within the past 12 months, did you worry whether your food would run out before you got money to buy more?: Never true Are you currently unemployed and looking for a job?: No THRIVE Score: 0 AUDIT C Alcohol Use Questionnaire (AUDIT-C) 1. How often do you have a drink containing alcohol?: Monthly or less 2. How many drinks containing alcohol do you have on a typical day when you are drinking?: 1 or 2 3. How often do you have six or more drinks on one occasion?: Never Total Score: 1 Score Reviewed/Action Taken: No JARRELL-7 AMB Questionnaire JARRELL-7 Date JARRELL - 7 assessed: 02/21/24 Feeling nervous, anxious, or on edge: 0 = Not at all Not being able to stop or control worryin = Not at all Worrying too much about different things: 0 = Not at all Trouble relaxin = Not at all Being so restless that it is hard to sit still: 0 = Not at all Becoming easily annoyed or irritable: 0 = Not at all Feeling afraid as if something awful might happen: 0 = Not at all Total JARRELL-7 score (0-4 normal; 5-9 mild; 10-14 moderate; 15-21 severe): 0 Source: Developed by Drs. Heriberto Merino, Aviva Guillen, Jag Jackson and colleagues, with an educational eugene from [employer]. JARRELL-7 Assessment Billing JARRELL-7 Assessment Tool: JARRELL-7 Assessment 05253 Physical exam (Primary Care) Vital Signs: Last Vital Signs Pulse 68 02/21/24 10:24 BP 120/70 02/21/24 10:37 Pulse Ox 97 02/21/24 10:24 Oxygen Delivery Method Room Air 02/21/24 10:24 BMI result Body Mass Index 24.7 Tobacco/Smoking Status: Tobacco use Status Tobacco use date assessed 12/25/23 02/21/24 10:30 Patient Tobacco Use Status Never used Tobacco 02/21/24 10:30 Tobacco use type Cigarette 02/21/24 10:30 e-Cigarette/Vaping Use Never Used 02/21/24 10:30 PHQ-9: PHQ-9 Score PHQ-9: Total score 0 02/21/24 10:43 Depression Screening Interpretation: Negative Thrive Assessment: Date of Thrive Assessment Date Thrive assessed 02/21/24 02/21/24 10:30 Const General: alert; No acute distress Eyes Conjunctivae: conjunctivae normal Resp Auscultation: clear to auscultation bilaterally Cardio Rate: regular rate Rhythm: regular rhythm GI Inspection: Yes normal to inspection Extrem General: Yes normal to inspection and No edema Assessment and Plan Assessment & Plan (1) History of breast cancer: Comment: February 2024 Code(s): Z85.3 - Personal history of malignant neoplasm of breast Plan: Patient is up-to-date with mammogram and follows up with the surgeon (2) Hypertension: Code(s): I10 - Essential (primary) hypertension Qualifiers: Hypertension type: essential hypertension Qualified Code(s): I10 - Essential (primary) hypertension Plan: Continue with blood pressure medication. Decrease salt intake and exercise on lisinopril (3) Insomnia: Code(s): G47.00 - Insomnia, unspecified Qualifiers: Insomnia type: primary Qualified Code(s): F51.01 - Primary insomnia Plan: Continue with sleeping medication as needed (4) Generalized anxiety disorder: Code(s): F41.1 - Generalized anxiety disorder Plan: Continue with present medication declined counseling (5) Hypercholesterolemia: Code(s): E78.00 - Pure hypercholesterolemia, unspecified Plan: Avoid fried foods, chicken skin, eggs, butter margarine, pastries and meat. Be it pork or beef they have a lot of cholesterol LDL goal of less than 130 and triglyceride of less than 150. (6) Impaired glucose tolerance: Code(s): R73.02 - Impaired glucose tolerance (oral) Plan: Decrease the amount of carbohydrate intake, pasta, bread, rice and potatoes are all sugar and that is aside from all the sweet stuff, remember that fruits are good but they are Sweet also. Orders: Orders Comprehensive Met. Panel 3 Months E78.00 - Pure hypercholesterolemia, unspecified Lipid Panel 3 Months E78.00 - Pure hypercholesterolemia, unspecified Hemoglobin A1c 3 Months R73.02 - Impaired glucose tolerance (oral) Coding Level of Care Code Est Pt Level 4 (42876) Diagnoses History of breast cancer Z85.3 Essential hypertension I10 Hypertension type: essential hypertension Primary insomnia F51.01 Insomnia type: primary Generalized anxiety disorder F41.1 Hypercholesterolemia E78.00 Impaired glucose tolerance R73.02 Additional Codes JARRELL-7 Assessment Billing - JARRELL-7 Assessment Tool: JARRELL-7 Assessment [id number] ([id number])
[2024-02-21 10:37] VITALS: BP 120/70
== END 2024-02-21 10:50 | disposition home or self-care (01) ==
PROVIDERS: PCP Internal Medicine; Visit Provider Internal Medicine
DX: Z85.3 Personal history of malignant neoplasm of breast (principal); I10 Essential (primary) hypertension; F51.01 Primary insomnia; F41.1 Generalized anxiety disorder; E78.00 Pure hypercholesterolemia, unspecified; R73.02 Impaired glucose tolerance (oral)

== ENCOUNTER → 2024-02-21 10:16 | Outpatient (BNVA) | payer BC, SELFPAY | PROVIDERS: PCP Internal Medicine; Visit Provider Internal Medicine | DX: I10 Essential (primary) hypertension (principal); F51.01 Primary insomnia; F41.1 Generalized anxiety disorder; E78.00 Pure hypercholesterolemia, unspecified; R73.02 Impaired glucose tolerance (oral); Z85.3 Personal history of malignant neoplasm of breast; Z79.899 Other long term (current) drug therapy | CPT/HCPCS: 96127 ==

== ENCOUNTER 2024-02-29 09:41 | Outpatient (AMB) | payer BC, SELFPAY ==
--- NOTE | 2024-02-29 09:53 | A.OFFVIS_ITS ---
Vital Signs 3 02/29/24 09:57 Height 5 ft 1 in Weight 133 lb 6 oz BMI 25.2 BP 157/83 H Blood Pressure Location Lt brachial Position Sitting Pulse 67 Intake Visit Reasons: yearly breast exam Intake Note: Patient is seen in office for yearly breast exam. Pt c/o: no concerns regarding her breast mm:02/17/24 Roll Setter Required: No Aquaculture And Fisheries Professor: Aquaculture And Fisheries Professor Present Accompanied by: Self / Same As Patient Allergies diphenhydramine [From Benadryl] Allergy (Unknown, Verified 02/29/24 09:57) Jittery Medication List - Last Reconciled 02/29/24 by Marco Triplett MD lisinopril 10 mg PO DAILY 30 days lorazepam 0.5 mg PO BEDTIME PRN melatonin 5 mg PO BEDTIME multivitamin 1 tab PO DAILY zolpidem 10 mg PO BEDTIME PRN HPI Comments Details: 63-year-old female patient returning for a follow-up breast examination. She is a former patient of Dr. Torres diagnosed with left breast treating ductal carcinoma in October 2007. She underwent a left breast lumpectomy, axillary sentinel node biopsy in November of 2007. Pathology revealed a left breast infiltrating ductal carcinoma with 2 foci measuring 2.1 cm and 1.3 cm, grade 2, ER/TN positive, HER2 Mariolu negative, 2 of 2 sentinel nodes positive metastases. Axillary node dissection of 14 lymph nodes were removed, 3 were positive for metastatic disease (T2 N1a M0, stage II). She underwent AC followed by T, followed by XRT, tamoxifen, and exemestane. She has been very active, traveling to [place] for vacation. She she continues to exercise on a regular basis. She notes swelling in the right sternoclavicular junction over the past year. She denies any pain associated with this does reported history of arthritis. She is concerned because it seems to be increasing in size. Her last mammogram performed at [facility] on 02/17/2024 revealed no mammographic evidence of malignancy (BI-RADS 2). She denies any new breast symptoms and generally feels well. [facility] Medical History COVID-19 virus infection Cervical cancer screening Well woman exam with routine gynecological exam Epidermal inclusion cyst Sessile colonic polyp Neck pain on left side Swelling of inguinal region Scalp lesion Low back strain Low back pain Neuropathy Pancreatitis Vitamin D deficiency Arthritis Encounter for screening colonoscopy Infiltrating ductal carcinoma of left breast Breast cancer Renal calculi Insomnia Hypertension History of breast cancer Surgical History History of bilateral oophorectomy History of section History of colonoscopy History of tonsillectomy History of cholecystectomy Family History Father CVD (cardiovascular disease) Myocardial infarction Mother Esophageal cancer Maternal Aunt Breast cancer Paternal Aunt Breast cancer Social History Household Members: Spouse Household Members Other:: , 3 kids Housing: House Are you a primary daycare director to a significant other at home: No Do you presently have visiting nurse or other home services: No Alcohol intake: current Alcohol intake frequency: 0-2 drinks per day Patient Tobacco Use Status: Never used Tobacco Tobacco use type: Cigarette e-Cigarette/Vaping Use: Never Used Second Hand Smoke Exposure: No service: No Current occupational status: employed Cognitive needs: No Hearing needs: No Vision needs: Yes Female Reproductive History Menstrual Age of Menarche: 13 Review of Systems Const Denies chills, Denies fever(s), Denies headache(s) and Denies poor appetite ENT Denies dizziness and Denies headache(s) Card Denies chest pain, Denies rapid heart rate, Denies palpitations and Denies slow heart rate Resp Denies chest congestion, Denies cough, Denies pain on inspiration and Denies wheezing GI Denies abdominal pain, Denies bloating, Denies change in stool character, Denies constipation, Denies diarrhea, Denies nausea, Denies vomiting and Denies hematemesis Denies nipple discharge Musc Denies back pain, Denies arthralgias, Denies joint swelling and Denies numbness Skin/Breast Reports breast skin changes, Denies breast pain, Denies breast mass, Denies change in breast shape, Denies change in pigmentation, Denies nipple discharge, Denies erythema and Denies rash Neuro Denies dizziness, Denies headache(s) and Denies numbness Psych Reports anxiety and Denies depression Endo Denies palpitations Chepe/Lymph Denies easy bleeding, Denies easy bruising and Denies lymphadenopathy Aller/Immun Denies wheezing Physical Exam Vital Signs: Last Vital Signs Pulse 67 02/29/24 09:57 BP 157/83 H 02/29/24 09:57 BMI result Body Mass Index 25.2 Const General: cooperative, comfortable and well developed Nutritional Appearance: well nourished Orientation/consciousness: patient oriented x3 Eyes Sclerae: sclerae normal EOM: EOMs intact bilaterally Neck Neck: Yes normal visual inspection Chest Other: Left breast: No skin change, no nipple retraction, no nipple discharge, no palpable mass, no enlarged lymph nodes, incision in the 2 to 3 o'clock position with some scar retraction in volume loss noted. Axillary incision is clean, and intact. No new palpable mass appreciated. Right breast: No skin change, no nipple retraction, no nipple discharge, no palpable mass, no enlarged lymph nodes. Sternoclavicular swelling as noted below Chest/axillae images: 2 1. Area of increased swelling at the sternoclavicular junction side, nontender to palpation. Resp Effort & Inspection: normal respiratory effort, no cough, no respiratory distress and no stridor Cardio Jugular venous distension: no JVD GI Inspection: Yes normal to inspection Palpation (GI): Soft to palpation, nontender, no guarding and not rigid Skin Other: Right groin with a small area of inflammation suggestive of an epidermal inclusion cyst or infected hair follicle measuring approximately 4 mm in diameter. No palpable abscess is appreciated. General skin exam: dry skin Rashes: no rashes Neuro General: patient oriented x3 and no focal motor deficits Extrem General: Yes full ROM and Yes no clubbing, cyanosis or edema Psych Appearance: grossly normal Assessment & Plan Assessment & Plan (1) Sternoclavicular joint pain: Code(s): M25.519 - Pain in unspecified shoulder Category: Medical Qualifiers: Laterality: right Qualified Code(s): M25.511 - Pain in right shoulder (2) Infiltrating ductal carcinoma of left breast: Code(s): C50.912 - Malignant neoplasm of unspecified site of left female breast Category: Medical Plan 63-year-old female patient with a previous history of infiltrating ductal carcinoma of the left breast status post lumpectomy and axillary dissection in 2007 returning today for a routine breast cancer follow-up examination. Examination today again revealsl residual scar tissue and volume loss in the left breast at the upper outer quadrant. No suspicious findings are noted in either breast on today's examination. There is an area of swelling in the right sternoclavicular junction which appears inflammatory. Her last mammogram dated 02/17/2024 at [facility] revealed no mammographic evidence of malignancy (BI- RADS 2). I recommended performing a CT chest to better image this area of swelling in the sternoclavicular junction right side. Follow-up breast examination is recommended in 1 year. I will call her with the results of the CT once available. Orders: Orders 2 CT chest w IV con Today M25.519 - Pain in unspecified shoulder Coding Level of Care Code Est Pt Level 3 (20491) Diagnoses Pain of right sternoclavicular joint M25.511 Laterality: right Infiltrating ductal carcinoma of left breast C50.912
[2024-02-29 09:57] VITALS: BP 157/83; PULSE 67; BMI 25.2
== END 2024-02-29 10:10 | disposition home or self-care (01) ==
PROVIDERS: PCP Internal Medicine; Visit Provider Surgery
DX: M25.511 Pain in right shoulder (principal); C50.912 Malignant neoplasm of unspecified site of left female breast
CPT/HCPCS: 99213

== ENCOUNTER → 2024-02-29 09:41 | Outpatient (BNVA) | payer BC, SELFPAY | PROVIDERS: PCP Internal Medicine; Visit Provider Surgery ==

== ENCOUNTER 2024-07-25 16:07 | Outpatient (AMB) | payer BC, SELFPAY ==
[2024-07-25 16:13] VITALS: BP 122/80; PULSE 74; O2SAT 94; BMI 25.0
--- NOTE | 2024-07-25 16:13 | A.OFFPC_ITS ---
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: No Accompanied by: Self / Same As Patient Allergies diphenhydramine [From Benadryl] Allergy (Unknown, Verified 07/25/24 16:14) Jittery Medication List - Last Reconciled 07/25/24 by Moises Sousa MD cholecalciferol (vitamin D3) 25 mcg PO DAILY lisinopril 10 mg PO DAILY lorazepam 0.5 mg PO BEDTIME PRN melatonin 5 mg PO BEDTIME multivitamin 1 tab PO DAILY zolpidem 10 mg PO BEDTIME PRN Tobacco use date assessed: 07/25/24 Dental Screening Dental Screen Date: 07/25/24 Did you have a dental visit in the last 12 months?: No Did you have a dental problem in the last 6 months where you did not have access to dental care?: No Was dental information given to patient?: No HPI Physical Exam HPI Details The patient is a 63-year-old female presenting with a follow-up for management of her chronic conditions. She has a history of breast cancer, diagnosed in February 2024, and has been under regular monitoring by her oncology team with follow-up appointments in April 2024. She suffers from essential hypertension, for which she is on Lisinopril. Her insomnia and generalized anxiety disorder are managed with Lorazepam as needed. The patient's most recent diagnosis includes hypercholesterolemia, noted to be elevated in her last check-up in February 2024. Her impaired glucose tolerance was identified during previous assessments, with her sugar levels recorded at 100. She has been actively monitoring her cholesterol levels but reports difficulty in sleep, accounts for persistent insomnia, and generalized fatigue associated with her anxiety disorder. The patient's regular physical activities include biking and treadmill workouts two to three times a week, which help to mitigate some symptoms of anxiety. All prior mammograms and bone density tests were up-to-date as per February 2024 and August 2022 respectively. - Mammogram up-to-date as of February 04. - Bone density screening last performed in August 2022. - Colonoscopy conducted in September 2022 [facility] advice for follow-up in three years. - Shingles vaccination received on Octob er 4th, with documented reaction. - Engages in regular physical activity, including biking and treadmill workouts, approximately two to three times a week. - Supports an 88-year-old father, angie zapata a possible role as a family caregiver. - Musculoskeletal: Reports muscle aches following shingles vaccination. - Dermatologic: Reports arm pain post-va ccination lasting about a week. [facility] Medical History COVID-19 virus infection Cervical cancer screening Well woman exam with routine gynecological exam Epidermal inclusion cyst Sessile colonic polyp Neck pain on left side Swelling of inguinal region Scalp lesion Low back strain Low back pain Neuropathy Pancreatitis Vitamin D deficiency Arthritis Encounter for screening colonoscopy Infiltrating ductal carcinoma of left breast Breast cancer Renal calculi Insomnia Hypertension History of breast cancer Surgical History History of bilateral oophorectomy History of section History of colonoscopy History of tonsillectomy History of cholecystectomy Family History Father CVD (cardiovascular disease) Myocardial infarction Mother Esophageal cancer Maternal Aunt Breast cancer Paternal Aunt Breast cancer Social History (Updated 07/25/24 @ 16:46 by Moises Sousa MD) Household Members: Spouse Household Members Other:: , 3 kids Housing: House Are you a primary direct care specialist to a significant other at home: No Do you presently have visiting nurse or other home services: No Alcohol intake: current Alcohol intake frequency: 0-2 drinks per day Comment: wine QD Patient Tobacco Use Status: Never used Tobacco Tobacco use type: Cigarette e-Cigarette/Vaping Use: Never Used Second Hand Smoke Exposure: No service: No Current occupational status: employed Cognitive needs: No Hearing needs: No Vision needs: Yes Female Reproductive History Menstrual Age of Menarche: 13 Questionnaire PHQ-9 Over the last 2 weeks, how often have you been bothered by any of the following problems? 1. Little interest or pleasure in doing things: not at all 2. Feeling down, depressed, or hopeless: not at all 3. Trouble falling or staying asleep, or sleeping too much: not at all 4. Feeling tired or having little energy: not at all 5. Poor appetite or overeating: not at all 6. Feeling bad about yourself - or that you are a failure or have let yourself or your family down: not at all 7. Trouble concentrating on things, such as reading the newspaper or watching television: not at all 8. Moving or speaking so slowly that other people could have noticed. Or the opposite - being so fidgety or restless that you have been moving around a lot more than usual: not at all 9. Thoughts that you would be better off or of hurting yourself in some way: not at all Total score: 0 Source: Developed by Drs. Heriberto Merino, Aviva Guillen, Jag Jackson and colleagues, with an educational eugene from [employer]. Thrive Questionnaire Date Thrive assessed: 07/25/24 I am a: Patient What is your living situation today?: I have a steady place to live Within the past 12 months, did the food you bought not last and you didn't have the money to get more?: Never true Within the past 12 months, did you worry whether your food would run out before you got money to buy more?: Never true Do you have trouble paying for medicines?: No Do you have trouble getting transportation to medical appointments?: No Do you have trouble paying your heating and electricity bill?: No Do you have trouble taking care of your child, family member or friend?: No Do you have trouble with day-to-day activities such as bathing, preparing meals, shopping, managing finances, etc.?: No Are you currently unemployed and looking for a job?: No Are you interested in more education?: No Please select the resources that you would like help with: None Currently or been in a relationship where the following occur: No concerns reported THRIVE Score: 0 AUDIT C Alcohol Use Questionnaire (AUDIT-C) 1. How often do you have a drink containing alcohol?: 2-3 times a week 2. How many drinks containing alcohol do you have on a typical day when you are drinking?: 3 or 4 3. How often do you have six or more drinks on one occasion?: Never Total Score: 4 JARRELL-7 AMB Questionnaire JARRELL-7 Date JARRELL - 7 assessed: 02/20/25 Feeling nervous, anxious, or on edge: 0 = Not at all Not being able to stop or control worryin = Not at all Worrying too much about different things: 0 = Not at all Trouble relaxin = Not at all Being so restless that it is hard to sit still: 0 = Not at all Becoming easily annoyed or irritable: 0 = Not at all Feeling afraid as if something awful might happen: 0 = Not at all Total JARRELL-7 score (0-4 normal; 5-9 mild; 10-14 moderate; 15-21 severe): 0 Source: Developed by Drs. Heriberto Merino, Aviva Guillen, Jag Jackson and colleagues, with an educational eugene from [employer]. Review of Systems Const Denies poor appetite and Denies weakness Eyes Denies no additional complaints ENT Reports Normal hearing present, Denies dizziness, Denies nasal congestion, Denies tinnitus and Denies sore throat Card Denies chest pain, Denies syncope, Denies rapid heart rate and Denies dyspnea Resp Denies cough and Denies dyspnea GI Denies change in stool character, Reports constipation, Denies diarrhea, Denies nausea and Denies vomiting Denies urinary frequency, Denies difficulty voiding and Denies dysuria Neuro Reports Normal hearing present, Denies confusion, Denies dizziness, Denies syncope and Denies weakness Psych Denies confusion Physical exam (Primary Care) Vital Signs: Last Vital Signs Pulse 74 07/25/24 16:13 BP 122/80 07/25/24 16:13 Pulse Ox 94 07/25/24 16:13 Oxygen Delivery Method Room Air 07/25/24 16:13 BMI result Body Mass Index 25.0 Tobacco/Smoking Status: Tobacco use Status Tobacco use date assessed 07/25/24 07/25/24 16:15 Patient Tobacco Use Status Never used Tobacco 07/25/24 16:15 Tobacco use type Cigarette 07/25/24 16:15 e-Cigarette/Vaping Use Never Used 07/25/24 16:15 PHQ-9: PHQ-9 Score PHQ-9: Total score 0 07/25/24 16:15 Thrive Assessment: Date of Thrive Assessment Date Thrive assessed 07/25/24 07/25/24 16:15 Currently or been in a relationship where the following occur: No concerns reported Const General: No confusion Orientation/consciousness: No confusion HENMT Head: Yes normocephalic Ears: external ears normal and TM's normal bilaterally Face and sinus: Yes normal facial exam Mouth: moist mucous membranes Throat: Yes tonsils normal Eyes Conjunctivae: conjunctivae normal Pupils: Equal, round and reactive pupils present and Pupil accommodation reflex normal Direct Ophthalmoscopy: normal light reflex Neck Neck: No lymphadenopathy Thyroid: Thyroid normal Chest Chest palpation & inspection: normal inspection of the chest Resp Effort & Inspection: normal respiratory effort and no audible wheezes Auscultation: clear to auscultation bilaterally, no crackles, no wheezes and lung sounds not diminished Cardio Rate: regular rate Rhythm: regular rhythm Peripheral pulses: radial pulses present and dorsalis pedis present GI Palpation (GI): no masses Auscultation: normal bowel sounds and normoactive bowel sounds Rectal Exam - Female: deferred Skin General skin exam: no rashes or lesions noted Rashes: no rashes Neuro General: No confusion Cranial nerves: Yes Equal, round and reactive pupils present and Yes Normal hearing present Cognition (Neuro): normal cognition Gait exam (Neuro): Normal gait present Motor exam (neuro): 5/5 motor strength present throughout Deep tendon reflexes (DTR's): Right brachioradialis reflex intensity grade: 2+, Left brachioradialis reflex intensity grade: 2+, Right patellar reflex intensity grade: 2+ and Left patellar reflex intensity grade: 2+ Extrem General: No edema Coding Level of Care Code Est Pt Prev Care 40-64y(77538) Diagnoses Annual physical exam Z00.00 History of breast cancer Z85.3 Essential hypertension I10 Hypertension type: essential hypertension Primary insomnia F51.01 Insomnia type: primary Generalized anxiety disorder F41.1 Hypercholesterolemia E78.00 LFT elevation R79.89 Cervical cancer screening Z12.4 Assessment & Plan Assessment & Plan (1) Annual physical exam: Code(s): Z00.00 - Encounter for general adult medical examination without abnormal findings Category: Medical Plan: Patient is advised to eat healthy, keep well hydrated, keep active and have adequate sleep. (2) History of breast cancer: Comment: February 2024 Code(s): Z85.3 - Personal history of malignant neoplasm of breast Category: Medical Plan: Patient continue to be followed up with Hematology-Oncology and the surgeon (3) Hypertension: Code(s): I10 - Essential (primary) hypertension Category: Medical Qualifiers: Hypertension type: essential hypertension Qualified Code(s): I10 - Essential (primary) hypertension Plan: Continue with blood pressure medication. Decrease salt intake and exercise on lisinopril 10 mg once a day (4) Insomnia: Code(s): G47.00 - Insomnia, unspecified Category: Medical Qualifiers: Insomnia type: primary Qualified Code(s): F51.01 - Primary insomnia Plan: Continue with zolpidem as needed (5) Generalized anxiety disorder: Code(s): F41.1 - Generalized anxiety disorder Category: Medical Plan: Continue with lorazepam as needed (6) Hypercholesterolemia: Code(s): E78.00 - Pure hypercholesterolemia, unspecified Category: Medical Plan: Avoid fried foods, chicken skin, eggs, butter margarine, pastries and meat. Be it pork or beef they have a lot of cholesterol LDL goal of less than 130 and triglyceride of less than 150. (7) LFT elevation: Code(s): R79.89 - Other specified abnormal findings of blood chemistry Category: Medical Plan: Patient is advised to get an ultrasound of the abdomen. (8) Cervical cancer screening: Comment: 07/07/2021 Pap equals negative, negative HPV., next pap due 2026 Code(s): Z12.4 - Encounter for screening for malignant neoplasm of cervix Category: Medical Plan - Labs: Previous blood work reported normal counts, electrolytes, renal function, and liver function. - Tests and Diagnostics: Cholesterol level noted as elevated in February 2024. - Continue monitoring essential hypertension with prescribed Lisinopril. - Manage insomnia and generalized anxiety disorder with Lorazepam as needed. - Follow-up with hematology oncology for breast cancer surveillance. - Schedule an abdominal ultrasound. - Recommend cholesterol management with dietary changes and monitor triglycerides. - Encourage continuation of regular physical activity to support anxiety management. During the visit, I discussed the importance of ongoing monitoring of the patient's chronic conditions, particularly emphasizing the significance of managing her elevated cholesterol levels and sleep-related concerns associated with her general anxiety disorder. For hypertension, I reinforced the continuation of Lisinopril. We discussed the role of physical activity in managing anxiety and maintaining overall health. The potential side effects and safe use of Lorazepam for insomnia were reviewed, and the use of dietary management for elevated cholesterol was considered. Anticipatory guidance included routine screenings and the need for regular follow-ups. - Continue taking Lisinopril for blood pressure management. - Use Lorazepam only as needed for anxiety and insomnia. - Maintain regular physical activity. - Schedule and complete an abdominal ultrasound. - Follow a cholesterol-friendly diet to manage hypercholesterolemia. - Seek immediate care if any unusual symptoms occur. - Ensure regular follow-ups for routine screenings. Orders: Orders US abdomen complete Today R79.89 - Other specified abnormal findings of blood chemistry Complete Blood Count Auto Diff Today E78.00 - Pure hypercholesterolemia, unspecified Comprehensive Met. Panel Today E78.00 - Pure hypercholesterolemia, unspecified Hepatitis B,C Profile Today R79.89 - Other specified abnormal findings of blood chemistry Liver Panel Today R79.89 - Other specified abnormal findings of blood chemistry Lipid Panel Today E78.00 - Pure hypercholesterolemia, unspecified Hemoglobin A1c Today E78.00 - Pure hypercholesterolemia, unspecified Thyroid Stimulating Hormone Today E78.00 - Pure hypercholesterolemia, unspecified Free T4 (Free Thyroxine) Today E78.00 - Pure hypercholesterolemia, unspecified Vitamin B12 and Folate Today E78.00 - Pure hypercholesterolemia, unspecified Vitamin D 25-OH Total Today E78.00 - Pure hypercholesterolemia, unspecified Referrals [employer] OFFICE MANAGER Referral Z12.4 - Encounter for screening for malignant neoplasm of cervix
== END 2024-07-25 17:04 | disposition home or self-care (01) ==
PROVIDERS: PCP Internal Medicine; Visit Provider Internal Medicine
DX: Z00.00 Encounter for general adult medical examination without abnormal findings (principal); Z85.3 Personal history of malignant neoplasm of breast; I10 Essential (primary) hypertension; F51.01 Primary insomnia; F41.1 Generalized anxiety disorder; E78.00 Pure hypercholesterolemia, unspecified; R79.89 Other specified abnormal findings of blood chemistry; Z12.4 Encounter for screening for malignant neoplasm of cervix

== ENCOUNTER 2024-08-22 08:36 | Outpatient (REF) | payer BC, SELFPAY ==
--- NOTE | ~2024-08-22 | US_ITS ---
EXAMINATION: US ABDOMEN COMPLETE CLINICAL INFORMATION: Elevated liver function tests.. COMPARISON: February 12, 2016. TECHNIQUE: Real-time imaging of the abdominal viscera. FINDINGS: PANCREAS: No peripancreatic fluid collections. ABDOMINAL AORTA: The proximal, mid, and distal segments are normal in caliber. INFERIOR VENA CAVA: Visualized portions are normal. LIVER: Liver measures 13 cm. Increased echotexture. No nodular surface. No solid or cystic lesion detected by the ophthalmic technologist. No intrahepatic biliary ductal dilatation. GALLBLADDER: Cholecystectomy. COMMON BILE DUCT: 6 mm. RIGHT KIDNEY: 11 cm. Normal echotexture. Normal renal cortical thickness. No hydronephrosis. There is a 1.8 cm exophytic anechoic lesion with a focal hyperechoic lesion and no flow on color Doppler interrogation centered in the upper pole. There is a 6 mm hyperechoic lesion in the lower pole. There is a 3 mm hyperechoic lesion in the lower pole. There is flow on color Doppler interrogation of the renal hilum.. LEFT KIDNEY: 12 cm. Normal echotexture. Normal renal cortical thickness. No hydronephrosis. 0.9 cm exophytic anechoic lesion without internal echoes or septations or flow on color Doppler interrogation centered in the midportion. There is flow on color Doppler interrogation of the renal hilum. SPLEEN: 11 cm. No focal lesion.. FREE FLUID: None. US/US abdomen complete IMPRESSION: Probable hepatic steatosis. Bosniak type II cyst, right kidney. Stable. Nonobstructing nephrolithiasis, right kidney. Bosniak type I cyst, left kidney. Electronically signed by: Alli Quinonez MD 08/22/2024 09:53 AM EDT
== END 2024-08-22 08:37 | disposition home or self-care (01) ==
LOC: HO.US 08:36
PROVIDERS: PCP Internal Medicine; Visit Provider Internal Medicine
DX: R79.89 Other specified abnormal findings of blood chemistry (principal)
CPT/HCPCS: 76700

== ENCOUNTER → 2024-08-22 08:38 | Outpatient (BNV) | payer BC, SELFPAY | PROVIDERS: PCP Internal Medicine; Visit Provider Radiology Diagnostic Radiology | DX: N28.1 Cyst of kidney, acquired (principal); N20.0 Calculus of kidney | CPT/HCPCS: 76700 ==

== ENCOUNTER 2025-02-13 08:12 | Outpatient (REF) | payer BC, SELFPAY ==
--- NOTE | ~2025-02-13 | MM_ITS ---
EXAMINATION: DXA BONE DENSITY AXIAL HISTORY: Post menopausal, osteopenia. TECHNIQUE: [employer] Dual energy absorptiometry (DEXA) of the lumbar spine, total left hip, and femoral neck was performed. COMPARISON: Comparison is made with the prior examination dated 08/10/2022. FINDINGS: The bone mineral density of the lumbar spine is 1.157 g/cm2, corresponding to a T-score of -0.2, and a Z-score of 1.6. This is indicative of normal bone mineral density. This represents a BMD change of 2.2% compared to the prior exam. This is not statistically significant. The bone mineral density of the left total hip is 1.026 g/cm2, corresponding to a T-score of 0.1, and a Z-score of 1.5. This is indicative of normal bone mineral density. This represents a BMD change of -2.2% compared to the prior exam. This is not statistically significant. The bone mineral density of the left femoral neck is 0.948 g/cm2, corresponding to a T-score of -0.7, and a Z-score of 1.0. This is indicative of normal bone mineral density. This represents a BMD change of 0.9% compared to the prior exam. MM/XR DEXA axial skeleton IMPRESSION: Based on bone mineral density, and according to World Health Organization (WHO) criteria, the diagnosis is consistent with normal bone mineral density. Statistically, 68% of repeat scans fall within 1 SD (+/- 0.010 g/cm2 for AP spine L1-L4) and 1 SD (+/- 0.012 g/cm2 for femur total) [employer] is a trademark of the [employer] [place] [facility] Met[employer], a World Health Organization (WHO) Collaborating Center. Electronically signed by: Heriberto Pyle MD 02/13/2025 09:21 AM EDT
== END 2025-02-13 08:13 | disposition home or self-care (01) ==
LOC: HO.MAMMO 08:12
PROVIDERS: PCP Internal Medicine; Visit Provider Internal Medicine Medical Oncology
DX: Z13.820 Encounter for screening for osteoporosis (principal); N85.3 Subinvolution of uterus; Z78.0 Asymptomatic menopausal state
CPT/HCPCS: 77080

== ENCOUNTER → 2025-02-13 08:15 | Outpatient (BNV) | payer BC, SELFPAY | PROVIDERS: PCP Internal Medicine; Visit Provider Radiology Diagnostic Radiology | DX: E28.39 Other primary ovarian failure (principal) | CPT/HCPCS: 77080 ==

== ENCOUNTER 2025-02-17 07:39 | Outpatient (AMB) | payer BC, SELFPAY ==
--- NOTE | 2025-02-17 07:46 | A.OFFVIS_ITS ---
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 No complaints. Last Pap/HPV was negative in 07/27 Last Mammogram was BI-RADS 2 in 02/26 at [facility], the patient is scheduled for another screening mammogram in 2 days Last Colonoscopy was in 09/25, the recommendation was to repeat in 3 years [facility] Medical History Cervical cancer screening COVID-19 virus infection Well woman exam with routine gynecological exam Epidermal inclusion cyst Sessile colonic polyp Neck pain on left side Swelling of inguinal region Scalp lesion Low back strain Low back pain Neuropathy Pancreatitis Vitamin D deficiency Arthritis Encounter for screening colonoscopy Infiltrating ductal carcinoma of left breast Breast cancer Renal calculi Insomnia Hypertension History of breast cancer Surgical History History of bilateral oophorectomy History of section History of colonoscopy History of tonsillectomy History of cholecystectomy Family History Father CVD (cardiovascular disease) Myocardial infarction Mother Esophageal cancer Maternal Aunt Breast cancer Paternal Aunt Breast cancer Social History Household Members: Spouse Household Members Other:: , 3 kids Housing: House Are you a primary rn acute care to a significant other at home: No Do you presently have visiting nurse or other home services: No Alcohol intake: current Alcohol intake frequency: 0-2 drinks per day Comment: wine QD Patient Tobacco Use Status: Never used Tobacco Tobacco use type: Cigarette e-Cigarette/Vaping Use: Never Used Second Hand Smoke Exposure: No service: No Current occupational status: employed Current occupation: [employer] Cognitive needs: No Hearing needs: No Vision needs: Yes Female Reproductive History Menstrual Age of Menarche: 13 Total pregnancies: 3 Full term: 3 Number of Living Children: 3 Date of Mammogram: 02/27/24 Review of Systems Const All systems reviewed & are unremarkable except as noted in HPI and below Card Reports as per HPI Resp Reports as per HPI GI Reports as per HPI and Reports no additional complaints Reports as per HPI Physical Exam Vital Signs: Last Vital Signs BP 130/80 02/17/25 07:49 BMI result Body Mass Index 24.2 Const General: cooperative, healthy appearing and comfortable Chest Chest palpation & inspection: normal inspection of the chest and normal palpation of entire chest wall Breast/axilla inspection: normal inspection of the breasts and normal inspection of the axillae Breast/axilla palpation: normal palpation of the breasts, normal palpation of the axillae and no axillary lymphadenopathy Resp Effort & Inspection: normal respiratory effort Auscultation: clear to auscultation bilaterally Percussion: percussion normal Cardio Palpation: normal PMI Rate: regular rate Rhythm: regular rhythm Heart sounds: no murmurs and no rubs Peripheral pulses: Peripheral pulses 2+ throughout GI Inspection: Yes normal to inspection Palpation (GI): Soft to palpation, nontender, no guarding, not rigid and No hepatosplenomegaly present Percussion: Yes normal to percussion Auscultation: normal bowel sounds Rectal Exam - Female: deferred General: Yes bladder normal to palpation External Female Exam: No lesion Speculum Exam - Vagina: normal appearance of the vagina, normal palpation, normal vaginal discharge and not erythematous Speculum Exam - Cervix: normal appearance of the cervix and normal palpation Bimanual exam- vagina & uterus: normal bimanual exam, normal palpation, uterine size normal, bladder normal to palpation, consistency normal and normal palpation Bimanual Exam- Adnexa, other: normal adnexae, no masses and no tenderness Assessment & Plan Assessment & Plan (1) Well woman exam: Code(s): Z01.419 - Encounter for gynecological examination (general) (routine) without abnormal findings Category: Medical Plan: Co testing not indicated this year. Counseled the patient about the recommended dietary allowance of 1200 mg of Calcium & 600 IU of vitamin D. Mammogram scheduled in 2 days. The patient was instructed to perform monthly self-breast exams and schedule annual exam in a year. All questions answered and the patient verbalized understanding. Coding Level of Care Code New Pt Prev Care 40-64y(98094) Diagnoses Well woman exam Z01.419
[2025-02-17 07:49] VITALS: BP 130/80; BMI 24.2
== END 2025-02-17 08:09 | disposition home or self-care (01) ==
LOC: HO.HWS 07:39
PROVIDERS: PCP Internal Medicine; Visit Provider Obstetrics & Gynecology
DX: Z01.419 Encounter for gynecological examination (general) (routine) without abnormal findings (principal)
CPT/HCPCS: 99386; 99459